=== PATIENT | female | born 1930 | race Caucasian/White ===

== ENCOUNTER 2017-04-21 12:45 | Outpatient (CLI) | payer OTHER | END 2017-04-21 12:58 | disposition home or self-care (01) | LOC: NUCLEAR 12:45 | DX: I87.2 Venous insufficiency (chronic) (peripheral) (principal); I73.9 Peripheral vascular disease, unspecified ==

== ENCOUNTER → 2017-04-24 | Outpatient (CLI) | payer OTHER | END | disposition home or self-care (01) | LOC: NUCLEAR 12:54 | DX: I80.01 Phlebitis and thrombophlebitis of superficial vessels of right lower extremity (principal) ==